=== PATIENT | male | born 1930 | race Caucasian/White ===

== ENCOUNTER 2016-07-07 06:57 | Outpatient (CLI) | payer MEDICARE, BC ==
--- NOTE | ~2016-07-07 | HEMODYNAMI ---
PATIENT:RAUL LOZADA MEDICAL RECORD: [id number] : 34 LOCATION:[facility] ADMISSION DATE: 07/07/16 Generatedon:07/07/201610:11 Patient name: RAUL LOZADA Patient #: [id number] SSN: : 1930 Date of study: 07/07/2016 Page: Of Hemodynamic Procedure Report Patient Data Patient Demographics Procedure consent was obtained First Name: RAUL Gender: Male Last Name: KIERRA : 1930 Patient #: [id number] Age: 85 year(s) Race: Unknown Additional ID: [id number] Contact details Address: [address] [place] [address] State: [place] City: [facility] Zip code: [address] Past Medical History Allergies: No known allergies Admission Admission Data Admission Date: 07/07/2016 Admission Time: 6:57 Admit Source: Other Height (in.): 77.5 BSA: 2.48 (m2) Height (cm.): 196.85 BMI: 29.44 (kg/m2) Weight (lbs.): 251.53 Weight (kg.): 114.09 Lab Results Lab Result Date: 07/07/2016 Lab Result Time: 9:05 Biochemistry Name Units Result Min Max BUN mg/dl 21 --(----)-* 7 18 Creatinine mg/dl 1 --(--*-)-- 0.6 1.3 CBC Name Units Result Min Max Hematocrit % 45.1 --(-*--)-- 42 54 Hemoglobin g/dl 15.4 --(-*--)-- 13.5 17.5 Procedure Procedure Types Cath Procedure Diagnostic Procedure [facility] w/Coronaries Aortic Root Angiography Procedure Description Procedure Date Procedure Date: 07/07/2016 Procedure Start Time: 9:46 Procedure End Time: 10:10 Procedure Staff Name Function Blaise Amaya MD Performing Physician Shirlene Tripp RT Scrub Cam Morgan RN Nurse David Melchor RT Monitor Procedure Data Cath Procedure Fluoroscopy Diagnostic fluoroscopy Total fluoroscopy Time: 4.4 time: 4.4 min min Diagnostic fluoroscopy Total fluoroscopy dose: 667 dose: 667 mGy mGy Contrast Material Contrast Material Type Amount (ml) Isovue 300 135 Entry Location Entry Primary Successful Side Size Upsize Upsize Entry Closure Succes sful Closure Location (Fr) 1 (Fr) 2 (Fr) Remarks Device Remarks Femoral Left 5 Fr Exoseal artery Estimated blood loss: 5 ml Diagnostic catheters Device Type Used For End Catheter Placement Diagnostic Infinity 5Fr Procedure JL 5 catheter Cordis 5Fr 3DRC Catheter Procedure (MP) Diagnostic Infinity 5Fr Procedure JL 6 catheter Cordis 5Fr Pigtail Procedure Catheter (MP) Procedure Complications No complications Procedure Medications Medication Administration Route Dosage Oxygen NC 2 l/min Heparin Flush Bag added to field 2 bags (1000units/500ml NS) 0.9% NaCl I.V. 100 ml/hr Fentanyl I.V. 50 mcg Versed I.V. 1 mg Hemodynamics Rest BSA: 2.48 (m2) O2 Consumption: Estimated: 274.68 (ml/min) O2 Consumption indexed : Estimated:110.76 (ml/min/m) Heart Rate: 62 (bpm) Pressure Samples Time Site Value (mmHg) Purpose Heart Use Rate(bpm) 10:02 LV 141/-2,13 Snapshot 68 10:03 LV 148/-4,13 EDP 69 10:03 AO 130/67(96) Pullback 69 10:03 LV 136/9,14 Pullback 69 Gradients Valve Time Site 1 Site 2 Mean SEP/DFP Peak To Heart Use (mmHg) (sec/min) Peak Rate (mmHg) (bpm) Aortic 10:03 LV AO 11 15 6 69 136/9,14 130/67(96) Calculations Valve P-P Mean Valve Index Valve Source Name Gradient Area Flow (cm2) Aortic 6 11 6 11 Snapshots Pre Cath Intra NCS Post Cath Vital Signs Time Heart Resp SPO2 etCO2 OX4qdam NIBP (mmHg) Rhythm Pain Sedation Rate (ipm) (%) (mmHg) (mmHg) Status Level (bpm) 9:33:29 66 16 97 0 0 139/81(109) NSR 0 (11) 10(A) , No pain 9:37:41 63 18 95 0 0 140/80(121) NSR 0 (11) 10(A) , No pain 9:41:53 65 18 98 0 0 128/81(104) NSR 0 (11) 10(A) , No pain 9:46:01 67 19 94 0 0 130/79(101) NSR 0 (11) 9(A) , No pain 9:50:09 63 18 98 0 0 139/81(104) NSR 0 (11) 9(A) , No pain 9:54:21 67 17 99 0 0 134/77(99) NSR 0 (11) 9(A) , No pain 9:58:35 71 17 98 0 0 126/72(99) NSR 0 (11) 9(A) , No pain 10:02:47 67 17 98 0 0 122/68(106) NSR 0 (11) 9(A) , No pain 10:06:54 69 16 98 0 0 130/69(107) NSR 0 (11) 9(A) , No pain 10:11:04 67 11 99 0 0 132/73(112) NSR 0 (11) 9(A) , No pain Medications Time Medication Route Dose Verified Delivered Reason Notes Effect iveness by by 9:36:24 Oxygen NC 2 Cam Cam Per l/min Eddie Morgan RN physician RN 9:36:32 Heparin Flush added 2 Cam Cam used for Bag to bags Eddie Morgan RN procedure (1000units/500ml field RN NS) 9:36:43 0.9% NaCl I.V. 100 Cam Cam Per ml/hr Eddie Morgan RN physician RN 9:43:39 Fentanyl I.V. 50 Cam Cam for mcg Eddie Morgan RN sedation RN 9:43:46 Versed I.V. 1 mg Cam Goldsteiny for Eddie Morgan RN sedation java oracle developer Log Time Note 9:05:12 Informed consent obtained and on chart 9:05:58 Diagnostic Cath status Elective 9:06:00 Cam Morgan RN sent for patient. Start room use. 9:06:01 Time tracking: Regular hours 9:06:04 Plan of Care:Hemodynamics will remain stable., Cardiac rhythm will remain stable., Comfort level will be maintained., Respiratory function will remain adequate., Patient/ family verbilizes understanding of procedure., Procedure tolerated without complication., Recovers from procedure without complications.. 9:06:07 Admit Source: Other 9:12:16 Lab Result : Hemoglobin 15.4 g/dl 9:12:16 Lab Result : Hematocrit 45.1 % 9:16:00 Lab Result : Creatinine 1 mg/dl 9:16:00 Lab Result : BUN 21 mg/dl 9:16:19 Patient Weight : 251.53 kg 9:16:25 Patient Height : 77.5 cm 9:21:53 Patient received from Pre/Post Procedure Room to CCL 1 Alert and oriented. Tansferred to table in Supine position. 9:21:54 Warm blankets applied, and tom hugger turned on for patient comfort. 9:21:55 Correct patient and procedure confirmed by team. 9:21:55 ECG and BP/O2 sat monitors applied to patient. 9:32:21 Vital chart was started 9:36:24 Oxygen 2 l/min NC was administered by Cam Morgan RN; Per physician; 9:36:32 Heparin Flush Bag (1000units/500ml NS) 2 bags added to field was administered by Cam Morgan RN; used for procedure; 9:36:43 0.9% NaCl 100 ml/hr I.V. was administered by Cam Morgan RN; Per physician; 9:39:39 Baseline sample Acquired. 9:39:56 Rhythm: sinus rhythm 9:40:19 H&P Date Dictated: 06/16/2016 Within 30 days and on chart., H&P Addendum completed by physician on day of procedure. (MUST COMPLETE FOR ALL OUTPATIENTS). 9:40:20 Pre-procedure instructions explained to patient. 9:40:21 Pre-procedure instructions explained to patient. 9:40:22 Pre-op teaching completed and patient verbalized understanding. 9:40:23 Family in waiting room. 9:40:24 Patient NPO since Midnight. 9:40:31 Patient allergic to No known allergies 9:40:34 Is the patient allergic to Iodine/contrast media? No. 9:40:54 Is patient on blood thinner?No 9:40:56 Patient diabetic? No. 9:41:08 Previous problem with sedation/anesthesia? No ? 9:41:09 Snore? Yes 9:41:10 Sleep apnea? No 9:41:11 Deviated septum? No 9:41:11 Opens mouth fully? Yes 9:41:12 Sticks out tongue? Yes 9:41:20 Airway obstruction? No ? 9:41:22 Dentures? No ? 9:41:26 Pre procedure: left dorsailis pedis pulse 2+ Normal; easily identifiable; not easily obliterated 9:41:27 Patient pain scale 0/10 ?. 9:41:41 IV patent on arrival in left forearm with 0.9% NaCl at [facility]. 9:41:45 Lab results completed and on chart. 9:41:47 Left groin area was prepped with chlora-prep and draped in sterile fashion 9:41:48 Alarms reviewed by R. N. 9:41:48 Sharps counted by scrub and verified by R.N. 9:41:51 Use device set Femoral Dx 9:41:52 Tegaderm 4 x 4 opened to sterile field. 9:41:53 Acist Manifold opened to sterile field. 9:41:54 Acist Hand Control opened to sterile field. 9:41:55 Acist Syringe opened to sterile field. 9:41:55 Bag Decanter opened to sterile field. 9:41:56 Medline Cath Pack opened to sterile field. 9:41:56 Terumo 5Fr Devon Sheath opened to sterile field. 9:41:57 [facility] Jacobo 260cm J .035 wire opened to sterile field. 9:42:18 Physician arrived 9:42:20 --------ALL STOP TIME OUT------ 9:42:20 Final Timeout: patient, procedure, and site verified with staff and physician. All members of the team are in agreement. 9:42:22 Left groin site verified by team. 9:42:28 Physical assessment completed. ASA score P 2 - A patient with mild systemic disease as per Blaise Amaya MD. 9:42:32 Sedation plan: IV Moderate Sedation Versed, Fentanyl 9:43:39 Fentanyl 50 mcg I.V. was administered by Cam Morgan RN; for sedation; 9:43:46 Versed 1 mg I.V. was administered by Cam Morgan RN; for sedation; 9:46:32 Procedure started. 9:46:32 Full Disclosure recording started 9:46:36 Local anesthetic to left femerol artery with Lidocaine 2% by Blaise Amaya MD.INITIAL ACCESS ONLY 9:47:04 Zero performed for pressure channel P1 9:47:07 Zero performed for pressure channel P1 9:47:42 A 5 Fr sheath was inserted into the Left Femoral artery 9:51:05 A Diagnostic Infinity 5Fr JL 5 catheter was advanced over the wire and used for Procedure. 9:53:52 Catheter removed. unable to cannulate vessel. 9:53:58 A Cordis 5Fr 3DRC Catheter (MP) was advanced over the wire and used for Procedure. 9:54:21 RCA angiography performed. 9:54:38 Catheter exchanged over wire. 9:55:54 A Diagnostic Infinity 5Fr JL 6 catheter was advanced over the wire and used for Procedure. 9:56:36 LCA angiography performed. 10:00:22 Catheter exchanged over wire. 10:00:26 A Cordis 5Fr Pigtail Catheter (MP) was advanced over the wire and used for Procedure. 10:03:13 LV gram done using HECK 10:03:16 Injector settings: Ml/sec: 10, Volume: 20, 10:03:36 EF : 60 % 10:04:17 Aortic Root visualized 10:05:04 Procedure type changed to Cath procedure, Diagnostic procedure, LHC, LHC w/Coronaries, Aortic Root Angiography 10:06:02 Catheter removed. 10:06:10 Cordis 5Fr Exoseal opened to sterile field. 10:06:21 Sheath removed intact; hemostasis achieved with Exoseal to the Left Femoral artery. 10:06:23 Procedure ended.(Physican Out) 10:07:02 Fluoroscopy time 04.40 minutes. 10:07:13 Fluoroscopy dose: 667 mGy 10:07:13 Flurop Dose total: 667 10:07:26 Contrast amount:Isovue 300 135ml. 10:07:27 Sharps counted by scrub and verified by R.N. 10:07:37 Insertion/operative site no bleeding no hematoma. 10:07:41 Post-op/insertion site Left Femoral artery dressed using a 4 x 4 and Tegaderm. 10:08:14 Post left femoral vein:soft, clean and dry 10:09:20 Post Procedure Pulses reassessed and unchanged 10:09:22 Post-procedure physical assessment completed. ASA score P 2 - A patient with mild systemic disease as per Blaise Amaya MD. 10:09:24 Post procedure rhythm: sinus rhythm 10:09:30 Estimated blood loss: 5 ml 10:09:31 Post procedure instruction explained to patient.Patient verbalizes understanding. 10:09:31 Patient needs reinforcement of post procedure teaching. 10:10:35 Procedure and supply charges have been captured, reviewed, submitted and are correct. 10:10:37 Procedure Complication : No complications 10:10:39 Vital chart was stopped 10:10:40 See physician's report for complete and final results. 10:10:44 Report given to Pre/Post Procedure Room. 10:10:47 Patient transfered to Pre/Post Procedure Room with Stretcher. 10:10:56 Procedure ended. 10:10:56 Full Disclosure recording stopped 10:11:12 End room use (Document Last) Device Usage Item Name Manufacture Quantity Catalog Hospital Part Current Minimal Lo t# / Number Charge Number Stock Stock Serial# Code Tegaderm 4 3M 1 1626W [id number] 133398 480136 5 x 4 Acist Acist 1 88612 320117 988669 024169 5 Manifold Medical Systems Nephera Acist Hand Acist 1 38724 401062 467424 361763 5 Control Medical Systems Inc Acist Acist 1 75330 095361 062046 309064 20 Syringe Medical Systems Inc Bag Microtek 1 2002S 913486 07836 510295 5 Decanter Medical Inc. Medline Cardinal 1 [id number] 811576 47557 483782 5 Cath Pack Health Terumo 5Fr Terumo 1 [id number] 230207 504816 749726 [address] [facility] Jacobo 1 595342 849122 591908 483070 30 260cm J .035 wire Diagnostic Cardinal 1 [id number] 644720 046123 848073 5 Infinity Health 5Fr JL 5 catheter Cordis 5Fr Cardinal 1 610247 5 3DRC Health Catheter (MP) Diagnostic Cardinal 1 [id number] 029150 234050 178906 5 Infinity Health 5Fr JL 6 catheter Cordis 5Fr Cardinal 1 926520 5 Pigtail Health Catheter (MP) Cordis 5Fr Cardinal 1 EX500 914878 541021 633326 10 Olery Signature Audit Dalzell Stage Time Signature Unsigned Intra-Procedure 07/07/2016 David Melchor 10:11:48 AM RT(R) Signatures Monitor : David Melchro RT Signature : Date : Time : [address] [place] [address]
[~2016-07-07 06:57] MED LIST: ASPIRIN EC81 MG; BUMETANIDE0.5 MG; EC-NAPROSYN500 MG PO; MAXZIDE-25 MG T1 TAB; PLAVIX75 MG PO
[2016-07-07] MEDS ORDERED: METOLAZONE2.5 MG PO (07:29)
[2016-07-07] MEDS ORDERED: K-DUR20 MEQ PO (07:29)
[2016-07-07] MEDS ORDERED: MIRALAX527 GM PO (07:30)
[2016-07-07] MEDS ORDERED: PROTONIX40 MG PO (07:30)
[2016-07-07] MEDS ORDERED: ALDACTONE50 MG PO (07:30)
[2016-07-07 07:39] VITALS: BP 141/73; BMI 29.4
[2016-07-07 09:08] LABS: HEMATOCRIT 45.1 % (42.0-54.0); HEMOGLOBIN 15.4 g/dL (13.5-17.5); LYMPHOCYTES 24.5 % (15-50); MCH 29.9 pg (26.0-34.0); MCHC 34.1 g/dL (31.0-37.0); MCV 87.6 fL (80.0-100.0); MEAN PLATELET VOLUME 8.8 fL (7.4-10.4); NEUTROPHILS 66.9 % (40-80); PLATELET COUNT 257 10x3/uL (130-400); RBC 5.15 10x6/uL (4.20-6.10); RDW 14.7 % (11.5-14.5)
[2016-07-07 09:13] LABS: CALC OSMOLALITY 269 mosm/kg (275-300); CALCIUM 9.2 mg/dL (8.5-10.1); CARBON DIOXIDE 31.4 mmol/L (21.0-32.0); CHLORIDE - SERUM 96 mmol/L (98-107); GLUCOSE 87 mg/dL (74-106); POTASSIUM - SERUM 3.2 mmol/L (3.5-5.1); SODIUM 134 mmol/L (136-145); UREA NITROGEN 21 mg/dL (7-18); eGFR NON AFRICAN AMERICAN 76 mL/min (90-120)
--- NOTE | 2016-07-07 09:21 | NUR ---
0915 PT DENIES ANY C/O. PO FLUIDS SERVED. R GROIN DRESSING CDI, AREA IS SOFT WITH NO HEMATOMA NOTED. FAMILY AT BEDSIDE. CALL LIGHT IN REACH.
--- NOTE | 2016-07-07 10:57 | NUR ---
0930 PT DENIES ANY C/O. DRESSING TO LEFT GROIN IS CDI, NO BLEEDING OR HEMATOMA NOTED. PEDAL PULSES PALPABLE.
--- NOTE | 2016-07-07 11:50 | NUR ---
1130 PT IS TOLERATING LIQUIDS WITH NO C/O NAUSA. EXOSEAL TO LEFT GROIN IS CDI, PEDAL PULSES PALPABLE. PT DENIES NEEDS AT THIS TIME.
--- NOTE | 2016-07-07 12:02 | NUR ---
1200 PT VOIDED 500 CC CLEAR YELLOW URINE USING URINAL
--- NOTE | 2016-07-07 13:05 | NUR ---
1245 PT HAS TOLERATED SANDWICH WITH NO C/O. LEFT GROIN DRESSING REMAINS CDI, NO BLEEDING OR HEMATOMA NOTED. REVIEWED DC INSTRUCTIONS WITH PT WHO VERBALIZES UNDERSTANDING.
--- NOTE | 2016-07-07 13:06 | NUR ---
1305 IV DC'D WITH CATH INTACT. PT IS DRESSING FOR DC TO HOME.
--- NOTE | 2016-07-07 13:12 | NUR ---
TAKEN OUT VIA WHEELCHAIR BY CATH DISABILITY ADVOCATE. LEFT FACILITY WITH FAMILY MEMBER AND ALL PERSONAL BELONGINGS.
--- NOTE | 2016-07-15 12:24 | OP ---
PATIENT NAME: RAUL LOZADA MEDICAL RECORD: [id number] :32 LOCATION:D.[facility] ADMISSION DATE: SURGEON: COLLIN GIORDANO M.D. DATE OF OPERATION: 07/07/2016 Catheterization Report REFERRING PHYSICIAN: Delfin Vides MD. PROCEDURES PERFORMED: 1. Selective coronary angiography. 2. Left heart catheterization with ventriculogram. 3. Aortic root injection. INDICATION: An 85-year-old gentleman with history of coronary artery disease presents with recurrent angina. Recent stress testing revealed inferior and apical ischemia. EQUIPMENT USED: A 5-[place] Citizen JL6, Killian right, pigtail catheter. TECHNIQUE: A 5-[place] Citizen sheath was inserted in retrograde fashion in the left common femoral artery. Next, selective coronary angiography was performed in standard views 5-[place] Citizen JL6, Killian right. Left heart catheterization performed using pigtail catheter. It should be noted that all the catheters were placed to the hub of the sheath for purposes of engagement. CORONARY ANATOMY: 1. Left main: Left main trunk is large in caliber. It gives rise to the LAD and circumflex. It has no obstruction. 2. LAD: This vessel is large in caliber. There is 100% occluded beyond the first diagonal branch. The mid distal vessel fills through intercoronary collaterals. This is known to be a chronic occlusion. The first diagonal branch has been stented. The stent is widely patent. However, distal stent, there is a hazy 60% stenosis seen. 3. Circumflex: This vessel is moderate in caliber. After the atrial branch, there is a 70% stenosis seen in the mid vessel. 4. Right coronary: This vessel is large in caliber and dominant. The mid vessel has [id number] irregularities, but nothing worse than 30% to 40%. However, at the bifurcation point, there is a long 70% stenosis seen in the PDA. 5. Left ventricle: Left ventricle is normal in size and function. No wall motion abnormalities are seen. Estimated ejection fraction is 60%. 6. Aorta. Ascending aorta appears to be normal in caliber. The aortic valve is heavily calcified. There is decreased movement in the leaflets. There is mild insufficiency noted as well. IMPRESSION: 1. It appears he had progression of his coronary artery disease. The lesions in the circumflex and right coronary appeared to be more significant. 2. He has mild insufficiency by aortogram, but it could be worse on echo. RECOMMENDATIONS: This gentleman presents somewhat of diagnostic dilemma. Because of his height, it may be impossible for lesions in the distal right coronary artery and circumflex to be reached with stents. At this point, I will likely proceed with an echocardiogram to assess his aortic valve and aortic insufficiency. We may need to consider bypass grafting as again stated above, OPERATIVE REPORT [id number] RAUL LOZADA because of his height; I am not convinced we can reach these lesions with stents. TRANSINT:[id number] Voice Confirmation ID: [id number] DOCUMENT ID: [id number] COLLIN GIORDANO M.D. at 1224 CC: [id number] DICTATION DATE: 07/07/16 1021 FOUR H AGENT: 07/07/16 1244 DEP CLI 07/07/16 [id number] [place] [address]
== END 2016-07-07 13:12 | disposition home or self-care (01) ==
LOC: D.CATH 06:57
PROVIDERS: Internal Medicine Cardiovascular Disease
DX: I25.119 Atherosclerotic heart disease of native coronary artery with unspecified angina pectoris (principal); R07.9 Chest pain, unspecified; R06.09 Other forms of dyspnea; I35.0 Nonrheumatic aortic (valve) stenosis